=== PATIENT | male | born 1965 | race Caucasian/White ===

== ENCOUNTER 2025-04-04 07:40 | Inpatient (IN) | payer SELFPAY ==
[2025-04-04] VITALS (20 sets, daily range): BP systolic 98–163; BP diastolic 54–100; PULSE 59–96; RESP 15–18; TEMP 97.8–98.9; O2SAT 81–100
[~2025-04-04] VITALS: Ht 177.8 cm; Wt 83.2 kg
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
[2025-04-04] MEDS: fentaNYL/PF 50MCG/1 ML 2ML syringe IV ONE ×2 (09:01→09:25)
[2025-04-04] MEDS: normal saline 1000ml 1,000 ML IV ONE ×2 (09:06→11:31)
[2025-04-04] MEDS: normal saline 1000ml 1,000 ML IV SCH (09:10)
[2025-04-04 09:48] LABS: BASOPHILS % (AUTO) 0.1 % (0-1); EOSINOPHILS % (AUTO) 0 % (0-6); HEMATOCRIT 37.1 % (42.0-52.0); HEMOGLOBIN 12.9 g/dl (14.0-17.9); LYMPHOCYTES # (AUTO) 0.7 X10'3 (1.1-4.8); LYMPHOCYTES % (AUTO) 6.2 % (21-51); MEAN CORPUSCULAR HEMOGLOBIN 31.5 PG (27.0-31.0); MEAN CORPUSCULAR HGB CONC 34.7 g/dL (33.0-36.5); MEAN CORPUSCULAR VOLUME 90.8 FL (78-98); MEAN PLATELET VOLUME 8.7 FL (7.4-10.4); MONOCYTES # (AUTO) 0.7 X10'3 (0-0.9); MONOCYTES % (AUTO) 6.2 % (2-12); NEUTROPHILS # (AUTO) 9.3 X10'3 (1.8-7.7); NEUTROPHILS % (AUTO) 87.5 % (42-75); PLATELET COUNT 219 X10'3 (140-440); RED BLOOD COUNT 4.09 X10'6 (4.70-6.10); RED CELL DISTRIBUTION WIDTH 12.4 % (11.5-14.5); WHITE BLOOD COUNT 10.6 X10'3 (4.5-11.0)
--- NOTE | 2025-04-04 09:53 | RADIOLOGY REPORT ---
DI CHEST,SINGLE VIEW, HISTORY: pre-op COMPARISON: None None TECHNICAL DATA: 1 view of the chest was obtained. FINDINGS: Lines and tubes: None Cardiomediastinal silhouette: normal Pulmonary vasculature: normal Lung expansion: normal Lung airspace: normal Lung interstitium: normal Pleura: normal Pneumothorax: no Bones: Unremarkable Other: no IMPRESSION: No acute intrathoracic abnormality.
[2025-04-04 10:00] LABS: APTT 26 SECONDS (22-32); PROTHROMBIN TIME 10.2 SECONDS (9.0-12.0)
[2025-04-04 10:02] LABS: ALANINE AMINOTRANSFERASE 36 U/L (12-78); ALBUMIN 3.4 G/DL (3.4-5.0); ALBUMIN/GLOBULIN RATIO 1.1 (1.1-1.5); ALKALINE PHOSPHATASE 61 IU/L (46-116); ANION GAP 7 (8-16); ASPARTATE AMINO TRANSFERASE 35 U/L (10-37); BILIRUBIN,TOTAL 1.1 MG/DL (0.1-1.0); BLOOD UREA NITROGEN 14 MG/DL (7-18); BUN/CREATININE RATIO 12.7 (10.0-20.0); CALCIUM 8.3 MG/DL (8.5-10.1); CHLORIDE 106 MMOL/L (99-107); GLUCOSE 118 MG/DL (70-104); POTASSIUM 4.1 MMOL/L (3.5-5.1); SODIUM 141 MMOL/L (135-145); TOTAL CARBON DIOXIDE 27.6 MMOL/L (24-32); TOTAL PROTEIN 6.6 G/DL (6.4-8.2); eCRCL 75 ML/MIN; eGFR 69 ML/MIN
[2025-04-04] MEDS ORDERED: NO HOME MEDS (10:02)
[2025-04-04] MEDS ORDERED: magnesium Cl slow-release 64mg tablet PO PRN (10:10)
[2025-04-04] MEDS: potassium Cl 20mEq in NS 1,000 ML IV SCH (10:10)
[2025-04-04] MEDS ORDERED: magnesium hydroxide 30ml (MOM) UD suspension PO PRN (10:10)
[2025-04-04] MEDS ORDERED: magnesium sulf-water 2g/50mL 50 ML IV PRN (10:10)
[2025-04-04] MEDS ORDERED: potassium Cl 20 mEq SR tablet PO PRN ×2 (10:10)
[2025-04-04] MEDS ORDERED: ondansetron/PF 4mg/2ml inj IV PRN ×2 (10:10→11:50)
[2025-04-04] MEDS ORDERED: morphine 2 MG/ML inj. syringe IV PRN ×2 (10:10)
[2025-04-04] MEDS ORDERED: magnesium sulf-water 4G/100mL 100 ML IV PRN (10:10)
[2025-04-04] MEDS ORDERED: potassium Cl 40MEQ/1/2NS 520ml 520 ML IV PRN (10:10)
[2025-04-04] MEDS ORDERED: mag hydrox/Alum hydrox/simeth 30ml oral suspension PO PRN (10:10)
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
--- NOTE | 2025-04-04 10:22 | ELECTROCARDIOGRAPH REPORT ---
[facility] Test Date: 2025-04-04 Test Time: 10:19:37 Pat Name: JEAN CARLOS SANTOS Department: [facility]-ER Patient ID: [facility]-[id number] Room: Gender: M [employer]: : 1965 Requested By: JASON WHITMORE Order Number: [id number] Reading MD: Measurements Intervals [place] Rate: 73 P: 60 SD: 165 QRS: 70 QRSD: 111 T: 23 QT: 386 QTc: 426 Interpretive Statements Sinus rhythm Please click the below link to view image of tracing.
[2025-04-04] MEDS ORDERED: ceFAZolin 1000mg inj ONE ×3 (11:09→12:16)
[2025-04-04] MEDS ORDERED: HYDROmorphone/PF 0.2 MG/ML SYRINGE IV PRN (11:50)
[2025-04-04] MEDS: ringers solution, lacted 1,000 ML IV SCH (11:50)
[2025-04-04] MEDS ORDERED: midazolam 1 mg/ML 2ml injection ONE (11:59)
[2025-04-04] MEDS ORDERED: fentaNYL /PF 50mcg/ml 5ml ampule ONE (11:59)
[2025-04-04] MEDS ORDERED: propofol inj 20 ML IV ONE (12:01)
[2025-04-04] MEDS: ceFAZolin 1000mg inj IR ONE (12:45)
[2025-04-04] MEDS ORDERED: acetaminophen 1,000mg/100ml IV 100 ML IV ONE (13:38)
[2025-04-04] MEDS: ketorolac trometh 30MG/ML vial 30 MG/ML VIAL IV ONE (14:08)
[2025-04-04] MEDS: morphine 4 MG/ML inj SYRINge IV PRN (14:08)
[2025-04-04] MEDS: HYDROmorphone/PF 0.2 MG/ML SYRINGE IV PRN (14:15)
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
--- NOTE | 2025-04-04 14:30 | OPERATIVE REPORT ---
Operative Report Providers to ~ Date of Procedure: April 04, 2025 Pre-Operative Diagnosis: femur fracture Post-Operative Diagnosis SAME as PRE-Op Procedure Performed Intramedullary rusty technique. 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 I obtained informed consent prior to the admission patient was given prophylactic intravenous antibiotics and in the operating room and given a general anesthetic placed in the [place] fracture table the fracture was reduced under traction and C-arm fluoroscopy with all personnel being protected by lead apron. The hip was now prepped and draped in usual sterile orthopaedic fashion surgical time-out was taken per protocol and the case was begun. Vertical isolation drape was used. A lateral incision was made proximal and slightly posterior to the greater trochanter guide pin was placed in the tip of the greater trochanter and advanced down the medullary canal. This was then drilled to a size 13 mm diameter with the proximal six inches drilled to a 14 mm diameter. This allowed insertion of the 11 mm x 340 mm nail to be inserted in a antegrade fashion without difficulty with near anatomic fixation and alignment of the fracture fat pattern. Guide pin was placed from the using the external alignment system for the hip compression screw into the central aspect of the femoral head using multiple planes of protection on the C-arm fluoroscopy to confirm that it was in the central central aspect of the femoral head. I used 100 mm compression hip screw. Bone quality was excellent. This lock the proximal aspect of the femoral rusty. A distal locking screw was done freehand to get good rotational stabilization this was a single 5 mm screw in diameter this was 36 mm long AP and lateral x- rays confirmed this was through the bone and the rusty with anatomic fixation. The proximal incision was irrigated and closed with 0 Vicryl for the iliotibial band and tensor fascia. Subcuticular closure was accomplished with 2-0 Vicryl the skin was closed with skin cyrus copious antiseptic irrigation was used prior to closure the small incision made for the compression lag screw which was a proximally 1-1/2 inch in length was closed with 2-0 Vicryl. The distal locking screw incision which was approximately 1 in in length was closed with 2- 0 Vicryl subcu and skin cyrus as well. Sterile dressings were applied and held in position and island dressings. Traction was released patient was then X to abated and transferred to the gurney and then recovery room in stable condition there were no apparent perioperative complications Counts repoted as correct: Yes LEELA AVILES MD April 04, 2025 14:30
[2025-04-04] MEDS: morphine 2 MG/ML inj. syringe IV PRN (14:37)
[2025-04-04] MEDS: HYDROcodone/acetaminophen 10/325mg tab PO PRN (14:55)
[2025-04-04] MEDS: docusate sod 100mg capsule PO SCH (19:07)
[2025-04-04] MEDS: K and/or MAG REPLACEMENT MC SCH (20:00)
[2025-04-05 02:00] VITALS: BP 103/65; PULSE 55; RESP 18; TEMP 98; O2SAT 95
[2025-04-05] MEDS: HYDROcodone/acetaminophen 5mg/325mg tablet PO PRN (05:30)
[2025-04-05 06:00] VITALS: BP 98/66; PULSE 57; RESP 16; TEMP 97.3; O2SAT 95
[2025-04-05 06:44] LABS: BASOPHILS % (AUTO) 0.1 % (0-1); EOSINOPHILS % (AUTO) 0 % (0-6); HEMATOCRIT 34.2 % (42.0-52.0); HEMOGLOBIN 11.4 g/dl (14.0-17.9); LYMPHOCYTES # (AUTO) 1.2 X10'3 (1.1-4.8); LYMPHOCYTES % (AUTO) 11.2 % (21-51); MEAN CORPUSCULAR HEMOGLOBIN 30.7 PG (27.0-31.0); MEAN CORPUSCULAR HGB CONC 33.3 g/dL (33.0-36.5); MEAN CORPUSCULAR VOLUME 92.3 FL (78-98); MEAN PLATELET VOLUME 8.8 FL (7.4-10.4); MONOCYTES # (AUTO) 0.8 X10'3 (0-0.9); MONOCYTES % (AUTO) 7.9 % (2-12); NEUTROPHILS # (AUTO) 8.6 X10'3 (1.8-7.7); NEUTROPHILS % (AUTO) 80.8 % (42-75); PLATELET COUNT 204 X10'3 (140-440); RED BLOOD COUNT 3.71 X10'6 (4.70-6.10); RED CELL DISTRIBUTION WIDTH 12.4 % (11.5-14.5); WHITE BLOOD COUNT 10.6 X10'3 (4.5-11.0)
[2025-04-05 07:21] LABS: ALANINE AMINOTRANSFERASE 31 U/L (12-78); ALBUMIN 3.1 G/DL (3.4-5.0); ALBUMIN/GLOBULIN RATIO 1.1 (1.1-1.5); ALKALINE PHOSPHATASE 48 IU/L (46-116); ANION GAP 6 (8-16); ASPARTATE AMINO TRANSFERASE 40 U/L (10-37); BILIRUBIN,TOTAL 0.8 MG/DL (0.1-1.0); BLOOD UREA NITROGEN 10 MG/DL (7-18); BUN/CREATININE RATIO 9.9 (10.0-20.0); CALCIUM 7.7 MG/DL (8.5-10.1); CHLORIDE 107 MMOL/L (99-107); CREATININE 1.01 MG/DL (0.60-1.10); GLUCOSE 116 MG/DL (70-104); MAGNESIUM 2.3 MG/DL (1.5-2.4); POTASSIUM 4.3 MMOL/L (3.5-5.1); SODIUM 141 MMOL/L (135-145); TOTAL CARBON DIOXIDE 28.2 MMOL/L (24-32); TOTAL PROTEIN 5.8 G/DL (6.4-8.2); eCRCL 81 ML/MIN; eGFR 76 ML/MIN
[2025-04-05] MEDS: enoxaparin 40mg/0.4ml syringe SUBCUT SCH (09:28)
[2025-04-05 10:00] VITALS: BP 113/73; PULSE 76; RESP 14; TEMP 97.6; O2SAT 96
--- NOTE | 2025-04-05 10:38 | PROGRESS NOTE ---
Daily Progress Note Providers to CC ~ Antibiotic Timeout Antibiotic Ordered?: No Subjective Chief complaint I tried to walk and was unable to pain and swelling are intense only on ambulation otherwise I am fine Positive muscle spasms Review of systems negative for all 10 systems reviewed Objective Vital Signs Date Time Temp Pulse Resp B/P (MAP) Pulse Ox O2 Delivery O2 Flow Rate FiO2 04/05/25 08:00 Room Air 04/05/25 06:00 97.3 57 16 98/66 (77) 95 04/04/25 22:00 Result Diagram: 04/05/25 0535 04/05/25 05 Patient is alert and oriented x3 no acute distress CVS first and second heart sounds are regular rate rhythm no murmurs gallops or rubs Respiratory system is clear to auscultate bilaterally Abdomen is soft scaphoid bowel sounds are positive Extremities no clubbing cyanosis or edema Coagulation Studies Laboratory Tests Test 04/04/25 09:17 Prothrombin Time 10.2 SECONDS (9.0-12.0) INR International Normalized Ratio 1.0 INR Activated Partial Thromboplast Time 26 SECONDS (22-32) Coagulation Comments Problem\Assessment\Plan Assessment and plan -- Right femoral fracture Postop day 1. Dr. Gregorio Pain in good control continue p.r.n. pain medications -muscle spasms Add Flexeril And magnesium Continue PT continue DVT prophylaxis at the bedside all questions answered to the best of my ability they agree with the plan of care Date of Service: April 05, 2025 Billing Provider: JEREMIAH LOBATO MD Common Visit Codes: [id number] INP/OBS CARE(HIGH) JEREMIAH LOBATO MD April 05, 2025 10:38
[2025-04-05] MEDS: cyclobenzaprine 10mg tablet PO PRN (14:37)
[2025-04-05] MEDS: magnesium oxide 400mg tablet PO SCH (15:46)
[2025-04-05 18:00] VITALS: BP 114/70; PULSE 71; RESP 16; TEMP 98.4; O2SAT 99
[2025-04-05 22:00] VITALS: BP 126/78; PULSE 65; RESP 16; TEMP 98.3; O2SAT 98
[2025-04-06 06:00] VITALS: BP 130/82; PULSE 74; RESP 18; TEMP 97.2; O2SAT 99
[2025-04-06 08:30] VITALS: RESP 18
[2025-04-06 09:09] LABS: BASOPHILS % (AUTO) 0.4 % (0-1); EOSINOPHILS % (AUTO) 0.4 % (0-6); HEMATOCRIT 32.5 % (42.0-52.0); HEMOGLOBIN 11.1 g/dl (14.0-17.9); LYMPHOCYTES # (AUTO) 1.4 X10'3 (1.1-4.8); LYMPHOCYTES % (AUTO) 21.4 % (21-51); MEAN CORPUSCULAR HEMOGLOBIN 31.4 PG (27.0-31.0); MEAN CORPUSCULAR HGB CONC 34.1 g/dL (33.0-36.5); MEAN CORPUSCULAR VOLUME 92.2 FL (78-98); MEAN PLATELET VOLUME 9.3 FL (7.4-10.4); MONOCYTES # (AUTO) 0.5 X10'3 (0-0.9); MONOCYTES % (AUTO) 8.1 % (2-12); NEUTROPHILS # (AUTO) 4.7 X10'3 (1.8-7.7); NEUTROPHILS % (AUTO) 69.7 % (42-75); PLATELET COUNT 186 X10'3 (140-440); RED BLOOD COUNT 3.53 X10'6 (4.70-6.10); RED CELL DISTRIBUTION WIDTH 12.4 % (11.5-14.5); WHITE BLOOD COUNT 6.7 X10'3 (4.5-11.0)
--- NOTE | 2025-04-06 09:17 | PROGRESS NOTE ---
Progress Note Dictate Providers to CC ~ Progress Note: Ortho note postop day 2. Status post intramedullary rodding for a proximal femoral shaft fracture/subtroch fracture. Subjective: Patient is still having a significant amount of pain and muscle spasms Flexeril is helping we still been unable then participate significantly with physical therapy. Patient denies any numbness or loss of function to his ankle or foot. Pain is in the quadricep muscle region. Objective: Patient has moderate swelling to his right thigh without significant tension no evidence of compartment syndrome extensor mechanism on exam appears to be intact. Got good distal pulses with excellent capillary refill to his right foot. Dressings are intact clean and dry. Patient was able to demonstrate quadricep contraction. Assessment: Status post IM rodding with expected amount of swelling and moderate muscle spasms. Patient is stable. Plan: Advance with physical therapy. Knee immobilizer as needed to help with physical therapy and weight-bearing status. Anticipate discharge in the next 1-2 days Objective Vitals Vital Signs Date Time Temp Pulse Resp B/P (MAP) Pulse Ox O2 Delivery O2 Flow Rate FiO2 04/06/25 06:00 97.2 74 18 130/82 (98) 99 Room Air 04/04/25 22:00 Lab Results: 04/06/25 0658 04/05/25 0535 Coagulation Studies Laboratory Tests Test 04/04/25 09:17 Prothrombin Time 10.2 SECONDS (9.0-12.0) INR International Normalized Ratio 1.0 INR Activated Partial Thromboplast Time 26 SECONDS (22-32) Coagulation Comments LEELA AVILES MD April 06, 2025 09:17
[2025-04-06 09:35] LABS: ALANINE AMINOTRANSFERASE 34 U/L (12-78); ALBUMIN/GLOBULIN RATIO 1.1 (1.1-1.5); ALKALINE PHOSPHATASE 48 IU/L (46-116); ANION GAP 6 (8-16); ASPARTATE AMINO TRANSFERASE 46 U/L (10-37); BILIRUBIN,TOTAL 0.9 MG/DL (0.1-1.0); BLOOD UREA NITROGEN 8 MG/DL (7-18); BUN/CREATININE RATIO 7.2 (10.0-20.0); CHLORIDE 105 MMOL/L (99-107); CREATININE 1.11 MG/DL (0.60-1.10); GLUCOSE 98 MG/DL (70-104); MAGNESIUM 2.2 MG/DL (1.5-2.4); POTASSIUM 4.1 MMOL/L (3.5-5.1); SODIUM 141 MMOL/L (135-145); TOTAL CARBON DIOXIDE 30.5 MMOL/L (24-32); TOTAL PROTEIN 5.8 G/DL (6.4-8.2); eCRCL 74 ML/MIN; eGFR 68 ML/MIN
[2025-04-06 10:00] VITALS: BP 135/83; PULSE 68; RESP 12; TEMP 98.5; O2SAT 98
--- NOTE | 2025-04-06 11:56 | PROGRESS NOTE ---
Daily Progress Note Providers to CC ~ Antibiotic Timeout Antibiotic Ordered?: No Subjective No acute events overnight. Patient examined at bedside. No new complaints, not in acute distress. Patient denies chest pain, sob, palpitations, abdominal pain, n/v/d. Patient is still having a significant amount of pain and unable then participate significantly with physical therapy. Vss, labs unremarkable. Objective Vital Signs Date Time Temp Pulse Resp B/P (MAP) Pulse Ox O2 Delivery O2 Flow Rate FiO2 04/06/25 09:29 18 04/06/25 06:00 97.2 74 130/82 (98) 99 Room Air 04/04/25 22:00 Result Diagram: 04/06/2565704/06/25657 Physical Exam General: Generalized weakness, A&Ox 3, NAD HEENT: Normocephalic, PERRLA Neck: Supple, trachea midline, no JVD Chest: Clear to auscultation bilaterally Cardiovascular: RRR, S1&S2 GI: Soft and nontender Extremities: No cyanosis/clubbing/or edema [employer]WMILL [employer] WORKER: CN II-XII intact, no focal deficits Musculoskeletal: Pain in right hip with palpation Skin: Warm and intact Coagulation Studies Laboratory Tests Test 04/04/25 09:17 Prothrombin Time 10.2 SECONDS (9.0-12.0) INR International Normalized Ratio 1.0 INR Activated Partial Thromboplast Time 26 SECONDS (22-32) Coagulation Comments Problem\Assessment\Plan # Right femoral fracture s/p fixation intramedullary rusty -continue supportive care, PT # Muscle spasms -muscle relaxant DVT/VTE Prophylaxis: Lovenox Code Status: Full Code Date of Service: April 06, 2025 Billing Provider: MILA KWON Common Visit Codes: [id number] INP/OBS CARE(HIGH) MILA KWON April 06, 2025 11:56
[2025-04-06 18:30] VITALS: BP 113/65; PULSE 68; RESP 14; TEMP 98; O2SAT 96
[2025-04-06 22:00] VITALS: BP 111/69; PULSE 63; RESP 13; TEMP 97.6; O2SAT 97
[2025-04-07 06:00] VITALS: BP 124/76; PULSE 57; RESP 13; TEMP 97.9; O2SAT 98
[2025-04-07 06:03] LABS: BASOPHILS % (AUTO) 0.7 % (0-1); EOSINOPHILS # (AUTO) 0.1 X10'3 (0-0.9); EOSINOPHILS % (AUTO) 1.6 % (0-6); HEMATOCRIT 32.3 % (42.0-52.0); HEMOGLOBIN 11.2 g/dl (14.0-17.9); LYMPHOCYTES # (AUTO) 1.6 X10'3 (1.1-4.8); LYMPHOCYTES % (AUTO) 28.7 % (21-51); MEAN CORPUSCULAR HEMOGLOBIN 31.9 PG (27.0-31.0); MEAN CORPUSCULAR HGB CONC 34.7 g/dL (33.0-36.5); MEAN CORPUSCULAR VOLUME 91.9 FL (78-98); MEAN PLATELET VOLUME 8.5 FL (7.4-10.4); MONOCYTES # (AUTO) 0.4 X10'3 (0-0.9); MONOCYTES % (AUTO) 7.5 % (2-12); NEUTROPHILS # (AUTO) 3.5 X10'3 (1.8-7.7); NEUTROPHILS % (AUTO) 61.5 % (42-75); PLATELET COUNT 219 X10'3 (140-440); RED BLOOD COUNT 3.52 X10'6 (4.70-6.10); WHITE BLOOD COUNT 5.7 X10'3 (4.5-11.0)
[2025-04-07 06:29] LABS: ALANINE AMINOTRANSFERASE 35 U/L (12-78); ALBUMIN 2.9 G/DL (3.4-5.0); ALBUMIN/GLOBULIN RATIO 0.9 (1.1-1.5); ALKALINE PHOSPHATASE 52 IU/L (46-116); ANION GAP 5 (8-16); ASPARTATE AMINO TRANSFERASE 40 U/L (10-37); BILIRUBIN,TOTAL 1.1 MG/DL (0.1-1.0); BLOOD UREA NITROGEN 9 MG/DL (7-18); BUN/CREATININE RATIO 7.9 (10.0-20.0); CALCIUM 8.2 MG/DL (8.5-10.1); CHLORIDE 102 MMOL/L (99-107); CREATININE 1.14 MG/DL (0.60-1.10); GLUCOSE 102 MG/DL (70-104); MAGNESIUM 2.2 MG/DL (1.5-2.4); POTASSIUM 3.9 MMOL/L (3.5-5.1); SODIUM 140 MMOL/L (135-145); TOTAL CARBON DIOXIDE 33.2 MMOL/L (24-32); eCRCL 72 ML/MIN; eGFR 66 ML/MIN
[2025-04-07 08:30] VITALS: RESP 18
[2025-04-07 10:00] VITALS: BP 114/72; PULSE 71; RESP 14; TEMP 97.6; O2SAT 97
[2025-04-07] MEDS ORDERED: HYDR-3965 PO (10:50)
[2025-04-07] MEDS ORDERED: ASPI81TA52 PO (11:05)
[2025-04-07] MEDS ORDERED: CYCL-1 PO (11:05)
[2025-04-07 15:40] VITALS: RESP 18
--- NOTE | 2025-04-07 15:47 | RADIOLOGY REPORT ---
C-ARM FLUOROSCOPY: PROCEDURE: Right femur IM rodding FLUOROSCOPY TIME: 184 sec DAP: 58.26 mgy FINDINGS: Spot intraoperative C arm radiographs demonstrating right femur IM rodding. IMPRESSION: Please refer to surgical report for detailed findings.
--- NOTE | 2025-04-07 15:48 | RADIOLOGY REPORT ---
Exam: US US NON VASCULAR Date: 04/07/2025 01:51 PM Clinical History: edema Comparison: None Findings: Targeted sonographic evaluation of the soft tissues of the right leg was obtained utilizing grayscale and color Doppler imaging. Diffuse edema. IMPRESSION : Diffuse edema. END IMPRESSION:
[2025-04-07] MEDS: acetaminophen 325mg tablet PO PRN (17:35)
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
== END 2025-04-07 17:48 | disposition home or self-care (01) | DRG 482 ==
LOC: ER 07:41 → ED HOLD 10:13 → ORTHO 4S 15:52
PROVIDERS: ADMIT Internal Medicine; ATTEND Internal Medicine
PROC: 0QS636Z Reposition Right Upper Femur with Intramedullary Internal Fixation Device, Percutaneous Approach (ICD-10-PCS; principal; 2025-04-04 11:54)
DX: S72.091A Other fracture of head and neck of right femur, initial encounter for closed fracture (principal); W18.39XA Other fall on same level, initial encounter; I95.9 Hypotension, unspecified; Y93.89 Activity, other specified; Y92.89 Other specified places as the place of occurrence of the external cause; Y99.8 Other external cause status
CPT/HCPCS: 99285; Z7506; Z7508; 36415; 71045; 73501; 73551; 73552; 76000; 76881; 80053; 83735; 85025; 85610; 85730; 86885; 86900; 86901; 87081; 93005; 97110; 97116; 97161; 97530; A4215; A4615; A4618; A6223; A6253; A6258; A6449; A7000; C1713; G0378; J0131; J0690; J1171; J1650; J1885; J2250; J2270; J2704; J3010; J3480; J7030